=== PATIENT | male | born 1985 | race Two or more races ===

== ENCOUNTER → 2025-10-19 | Emergency (ER) | payer OTHER ==
[~2025-10-19] VITALS: Ht 170.2 cm; Wt 56.7 kg
[~2025-10-19] MED LIST: 0.9 % SODIUM CHLORIDE 1,000 ML IV STA; ANUSOL-HC30 G2 TOP; FAMOTIDINE/PF 20 MG/2 ML VIAL IV STA; LACTULOSE 20 G/30 ML BLIST.PACK PO STA; MAGNESIUM HYDROXIDE 400 MG/5 ML ML PO STA; MINERAL OIL 30 ML BLIST.PACK PO STA; PROZAC10 M1 PO; STOOL SOFTENER100 M1 PO; TRUVADA 200 MG1 EACH PO; WELLBUTRIN XL300 MG PO
[2025-10-19 03:02] LABS: URINE APPEARANCE Clear; URINE BILIRRUBIN Small (NEGATIVE); URINE BLOOD Negative; URINE COLOR Dark Yellow; URINE GLUCOSE Negative (NEGATIVE); URINE KETONE Trace (NEGATIVE); URINE LEUKOCYTE Negative; URINE NITRATE Negative; URINE PROTEIN Trace (NEGATIVE); URINE UROBILINOGEN 1.0 E.U./dl
[2025-10-19 03:05] LABS: URINE BACTERIA 43.4 uL (0.0-1933); URINE EPITHELIAL CELLS 5.2 uL (0.0-38.8); URINE WBC 2.2 uL (0.0-23.2)
[2025-10-19 03:09] LABS: BASO % 1.0 % (0.1-1.2); EOS # 0.06 (0.04-0.54); EOS % 0.8 % (0.7-7.0); LYMPH # 2.86 (1.18-3.74); LYMPH % 39.4 % (19.3-53.1); MEAN PLATELET VOLUME 10.00 fl (9.4-12.4); MONO # 1.12 (0.24-0.82); NEUT # 3.12 (1.56-6.13); NEUT % 43.0 % (34.0-71.1); RED CELL DISTRIBUTION WIDTH 11.6 % (11.6-14.4)
[2025-10-19 03:11] LABS: ERYTHROCYTE SEDIMENTATION RATE 1 mm/hr (0-15); MONO % 15.4 % (4.7-12.5)
[2025-10-19 03:18] LABS: INR 0.95
[2025-10-19 03:24] LABS: URINE CAST 0.14 uL (0.0-1.40); URINE RBC 1.5 uL (0.0-20.8)
[2025-10-19 03:55] LABS: ALT/SGPT 33 U/L (12-78); AST/SGOT 28 U/L (15-37); BILIRUBIN TOTAL 0.75 mg/dL (0.3-1.2); BUN CREA RATIO 15 (7.0-25.0); CREATININE SERUM 0.98 mg/dL (0.70-1.30); GFR 85.60; GLOBULINA 2.6 G/DL (2.4-3.5); GLUCOSE FASTING 92 mg/dL (65-100); OSMOLALITY SERUM 282 MOSM/KG (275-295)
== END | disposition home or self-care (01) ==
LOC: ER 01:25
PROVIDERS: Physician Assistant Medical
DX: K64.8 Other hemorrhoids (principal); K59.00 Constipation, unspecified; R10.9 Unspecified abdominal pain; K59.09 Other constipation; K62.89 Other specified diseases of anus and rectum; B20 Human immunodeficiency virus [HIV] disease
CPT/HCPCS: 36415; 74177; 96365; 96366; 99284; J3490; J7030; Q9965